=== PATIENT | female | born 1995 | race Caucasian/White ===

== ENCOUNTER 2018-01-14 12:47 | Emergency (ER) | payer BC ==
[~2018-01-14] VITALS: Ht 154.9 cm; Wt 59.0 kg
[2018-01-14 12:52] VITALS: Ht 154.9 cm; Wt 59.0 kg
[2018-01-14 14:01] VITALS: BP 130/71
== END 2018-01-14 14:01 | disposition home or self-care (01) ==
LOC: ED 12:47
DX: S50.12XA Contusion of left forearm, initial encounter (principal); Z88.1 Allergy status to other antibiotic agents; V49.88XA Car occupant (driver) (passenger) injured in other specified transport accidents, initial encounter; Y93.I9 Activity, other involving external motion; Y92.413 State road as the place of occurrence of the external cause; Y99.8 Other external cause status
CPT/HCPCS: Q0092